=== PATIENT | female | born 1940 | race Caucasian/White ===

== ENCOUNTER 2016-04-15 16:19 | Emergency (ER) | payer OTHER ==
[2016-04-15] MEDS ORDERED: XYLOCAINE-MPF 1% INJ ONE (16:51)
[2016-04-15 17:46] LABS: MANUAL DIFF NEEDED? NO
[2016-04-15 18:02] LABS: BASO% 0.2 % (0.0-0.8); EOS# 0.07 X1000 (0.0-0.7); EOS% 0.7 % (0.0-10.0); HEMOGLOBIN 11.3 g/dL (12.0-16.0); IMM GRAN# 0.02 X1000 (0.0-0.04); IMM GRAN% 0.2 % (0.0-0.5); LYMPH# 2.12 X1000 (1.2-3.4); LYMPH% 20.1 % (20.5-51.1); MCH 31.6 PG (27-31); MCHC 32.3 g/dL (33-37); MCV 97.8 FL (81-99); MONO# 0.69 X1000 (0.11-0.59); MONO% 6.5 % (1.7-9.3); MPV 9.8 FL (7.4-10.4); NEUT% 72.3 % (42.2-75.2); PLT 291 X1000 (130-400); RBC 3.58 XMIL (4.2-5.4)
[2016-04-15 18:16] LABS: CALCIUM 9.7 mg/dL (8.8-10.2); POTASSIUM 4.2 mmol/L (3.5-5.1)
[2016-04-15] MEDS ORDERED: DIPHTHERIA/TETANUS ADULT IM ONE (18:18)
--- NOTE | 2016-04-15 18:31 | PROVIDER DOCUMENTATION ---
HPI-Head Injury - General Chief Complaint: Fall Stated Complaint: fall, head injury Time Seen by Provider: 04/15/16 16:33 Allergies/Adverse Reactions: Patient Allergies Allergy/AdvReac Type Severity Reaction Status Date / Time Sulfa (Sulfonamide Allergy Severe ITCHING Verified 04/15/16 17:46 Antibiotics) latex Allergy ITCHING Verified 04/15/16 17:46 Home Medications: Home Medication List Medication Instructions Recorded Confirmed Last Taken Type Clonazepam 0.5 mg PO HS 12/21/14 04/15/16 04/14/16 21:00 History Hydrocodone/Acetaminophen 1 each PO Q4H PRN PRN 02/11/16 04/15/16 04/13/16 20: 00 History [Hydrocodon-Acetaminophn 10-325] Sertraline [Zoloft] 50 mg PO QHS 02/11/16 04/15/16 04/14/16 21:00 History Aspirin EC 325 mg PO DAILY #0 tablet 02/14/16 04/15/16 04/15/16 08:00 Rx Carbidopa/Levodopa [Sinemet 25/100] 1 each PO QHS #0 tablet 02/14/16 04/15/16 18:00 Rx Carbidopa/Levodopa [Sinemet 25/100] 1.5 each PO DAILY@16 #0 tablet 02/14/1604/15/16 09:00 Rx Carbidopa/Levodopa [Sinemet 25/100] 1 tab PO DIRECTED 04/15/16 04/15/1604/15 12:00 History - History of Present Illness-Head Injury Nature of Presenting Problem: 75 yo with parkinsonswho stood up out of wheelchair and fell forward and hit her head on floor today approx 3 pm. No LOC. Generally not ambulatory becasue of parkinsons. No chest pain or palpitations. no other injuries Head Injury Location: reports: frontal Other injuries associated with incident:: reports: head Quality of Pain: reports: aching Severity: reports: moderate Onset/Duration: reports: unsure Method of Injury: reports: fell Loss of Consciousness: no loss of consciousness Modifying Factors: improves with: nothing Locality of Occurance: Other (shelter) Similar Symptoms Previously?: No Review of Systems - Adult - REVIEW OF SYSTEMS - ADULT Constitutional: reports: no symptoms reported Eyes: reports: no symptoms reported Ears, Nose, Mouth & Throat: reports: no symptoms reported Cardiovascular: reports: no symptoms reported Respiratory: reports: no symptoms reported Gastrointestinal: reports: no symptoms reported Genitourinary: reports: frequent UTI's Musculoskeletal: reports: other (6 months ago had L clavicle fracture) Integumentary: reports: no symptoms reported Neurological: reports: loss of balance, other (difficulty with ambulation) Past History - Adult - PAST MEDICAL HISTORY-ADULT Review of Records: reports: Old Records Reviewed, Nursing Assessment Review, Medications Reviewed Major Childhood Illnesses: reports: history unknown Cardiovascular: reports: HTN Respiratory: reports: denies history Gastrointestinal: reports: denies history, GERD Genitourinary: reports: chronic UTI's Musculoskeletal: reports: chronic pain Neurological: reports: Parkinson's Endocrine/Immune: reports: denies history Other Conditions: reports: denies history - PRIOR SURGERIES/PROCEDURES Surgical/Procedure History: reports: appendectomy, hysterectomy, back/neck - IMMUNIZATION STATUS Childhood Immunizations: See Nurse Assessment Flu Vaccine: See Nurse Assessment - FAMILY HISTORY Family History: CAD over 55 yo Physical Exam- Neurological - Physical Exam-Neuro Initial Vital Signs Reviewed: Yes General Appearance: appears well, alert, no apparent distress Eye Exam: bilateral eye: normal inspection, PERRL, EOMI HENMT: TMs normal, pharynx normal, frontal tenderness, other (frontal midline laceration 3 cm) Head Injury: active bleeding Neck: non-tender Respiratory: chest non-tender, lungs clear, normal breath sounds Cardiovascular: normal peripheral pulses, regular rate, rhythm, no edema, no gallop, no JVD, no murmur Abdominal Exam: normal bowel sounds, non tender, soft, no organomegaly Lymphatic: no adenopathy Extremity: normal range of motion, non-tender, normal inspection, 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 Exam: PERRL Motor/Sensory: no motor deficit, no sensory deficit Neurologic: grossly normal, no motor/sensory deficits Integumentary: ecchymosis (mild dorsum L hand), laceration(s) (forehead 3 cm irregular) Psych/Mental Status: normal mood/affect, normal thought content, normal thought process, oriented x 3 - [place]ow Coma Scale Best Eye Response: (4) open spontaneously Best Verbal Response: (5) oriented Best Motor Response: (6) obeys commands Progress - PLAN OF CARE/RESULTS Progress/Plan/Lab Results: Laboratory Tests 04/15/16 04/15/16 17:30 17:30 WBC 10.57 RBC 3.58 L Hgb 11.3 L Hct 35.0 L MCV 97.8 MCH 31.6 H MCHC 32.3 L RDW Std Deviation 13.4 Plt Count 291 MPV 9.8 Immature Gran % (Auto) 0.2 Neut % (Auto) 72.3 Lymph % (Auto) 20.1 L [place] % (Auto) 6.5 Eos % (Auto) 0.7 Baso % (Auto) 0.2 Immature Gran # (Auto) 0.02 Neut # (Auto) 7.65 H Lymph # (Auto) 2.12 [place] # (Auto) 0.69 H Eos # (Auto) 0.07 Baso # (Auto) 0.02 Sodium 138 Potassium 4.2 Chloride 100 Carbon Dioxide 24 L Anion Gap 14 BUN 26 H Creatinine 1.1 H Estimated GFR/1.73 m2 48 BUN/Creatinine Ratio 24 Glucose 113 H Calculated Osmolality 281 Calcium 9.7 Orders Category Date Time Status Suture Tray Set-Up DIRECTED Care 04/15/16 16:51 Active CHEST-PORTABLE [RAD] Stat Exams 04/15/16 16:49 Taken HEAD/C-SPINE W/O CONTRAST [CT] Stat Exams 04/15/16 16:48 Draft BMP [BASIC METABOLIC PANEL] [CHEM] Stat Lab 04/15/16 17:30 Completed CBC WITH ELECTRONIC DIFF [HEME] Stat Lab 04/15/16 17:30 Completed Diphtheria/Tetanus Adult Med 04/15/16 18:18 Discontinued 0.5 ml IM .ONCE ONE Lidocaine 1% Pf [Xylocaine-Mpf 1%] Med 04/15/16 16:51 Discontinued See Dose Instructions INJ NOW ONE Suture Tray (General Purpose) Stat Oth 04/15/16 16:51 Active EKG [EKG] Stat Ther 04/15/16 16:49 Ordered Vital Signs Temp Pulse Resp BP Pulse Ox 04/15/16 16:20 97.9 F 78 16 124/59 100 Sulfa (Sulfonamide Antibiotics) Allergy (Severe, Verified 04/15/16 17:46) ITCHING latex Allergy (Verified 04/15/16 17:46) ITCHING Clonazepam 0.5 mg PO HS 12/21/14 Hydrocodone/Acetaminophen [Hydrocodon-Acetaminophn 10-325] 1 each PO Q4H PRN PRN 02/11/16 Sertraline [Zoloft] 50 mg PO QHS 02/11/16 Aspirin EC 325 mg PO DAILY #0 tablet 02/14/16 Carbidopa/Levodopa [Sinemet 25/100] 1 each PO QHS #0 tablet 02/14/16 Carbidopa/Levodopa [Sinemet 25/100] 1.5 each PO DAILY@16 #0 tablet 02/14/16 Carbidopa/Levodopa [Sinemet 25/100] 1 tab PO DIRECTED 04/15/16 Laboratory 04/15/16 04/15/16 17:30 17:30 WBC 10.57 RBC 3.58 L Hgb 11.3 L Hct 35.0 L MCV 97.8 MCH 31.6 H MCHC 32.3 L RDW Std Deviation 13.4 Plt Count 291 MPV 9.8 Immature Gran % (Auto) 0.2 Neut % (Auto) 72.3 Lymph % (Auto) 20.1 L [place] % (Auto) 6.5 Eos % (Auto) 0.7 Baso % (Auto) 0.2 Immature Gran # (Auto) 0.02 Neut # (Auto) 7.65 H Lymph # (Auto) 2.12 [place] # (Auto) 0.69 H Eos # (Auto) 0.07 Baso # (Auto) 0.02 Sodium 138 Potassium 4.2 Chloride 100 Carbon Dioxide 24 L Anion Gap 14 BUN 26 H Creatinine 1.1 H Estimated GFR/1.73 m2 48 BUN/Creatinine Ratio 24 Glucose 113 H Calculated Osmolality 281 Calcium 9.7 - EKG 1 Time of EKG reading by physician:: 18:51 EKG Read and Signed by:: Keerthi Stinson EKG Interpretation (*Must complete 3 of following elements*): Abnormal Rate: 75 Rhythm: nsr [place]: left QRS: LBB - XRAY 1 XRAY Study: Chest (no fractures seen) - CT/MRI 1 CT Study: Head (no hemorrhage, some frontal sinus mucous) Procedures - LACERATION/WOUND REPAIR/FB Head Wound Location: Other: forehead midline Wound Length: 3cm Wound's Depth, Shape: superficial Wound Explored/Foreign Body: clean Irrigated with Saline?: Yes Anesthetic: 1%, Lidocaine/Xylocaine Volume of Anesthetic (ml's): 3 Wound Repaired with: Sutures Suture Size/Type: 5.0, Nylon Number of Sutures: 5 Layer Closure?: No Sterile Dressing Applied?: No Splint Applied?: No Post Procedure Neurovascular Exam: Intact Departure - Departure Time of Disposition Order: 18:27 DIAGNOSIS: Head injury, Laceration Disposition: HOME 01 Certified Medical Emergency: Emergent Condition: Stable Additional Instructions: Rest, get up with assistance only. Return to emergency department if persistent vomiting, difficulty arousing or any new neurologic symptoms. Use tylenol for discomfort. Keep wound dry over nite. Apply topical antibiotic like bacitracin daily. Suture removal 7 days ED Follow Up Instructions: You have been treated by a care provider in the Emergency Department. These instructions are being provided to you so you can have an understanding of how to care for yourself upon discharge. Upon discharge from the Emergency Department, you are responsible for making arrangements for follow-up care by a physician of your choice. Take all prescribed medications as directed. Return to the Emergency Department immediately for any new or worsening symptoms. You may call the Physician Referral phone number at [phone] to obtain a list of Physicians who are taking new patients. Referrals: Sirena Flores MD [Primary Care Provider] -
--- NOTE | 2016-04-15 19:01 | Diag Imaging Result Document ---
PROCEDURE NAME: HEAD/C-SPINE W/O CONTRAST - 04/15/2016 CT BRAIN AND CERVICAL SPINE WITHOUT CONTRAST: CT BRAIN WITHOUT: FINDINGS: No parenchymal hemorrhage. No epidural or subdural hematoma. No subarachnoid hemorrhage. No skull fracture. There are chronic microvascular ischemic changes. No hydrocephalus. No sinus opacification. No air-fluid levels. IMPRESSION: No hemorrhage. No injury. CT CERVICAL SPINE WITHOUT CONTRAST: FINDINGS: Mild scoliosis with degenerative changes in the mid and lower cervical spine. No precervical soft tissue swelling. No subluxation. No fracture. IMPRESSION: No acute bony injury. A preliminary report was given at 5:47 PM.
[2016-04-15 19:49] VITALS: BP 120/60
--- NOTE | 2016-04-16 05:39 | EKG Report ---
Test Performed on : 04/15/2016 6:51:01 PM Test Reason : fall Blood Pressure : / mmHG Vent. Rate : 075 BPM Atrial Rate : 075 BPM P-R Int : 152 ms QRS Dur : 140 ms QT Int : 410 ms P-R-T Axes : 073 -55 092 degrees QTc Int : 457 ms Normal sinus rhythm. Left axis deviation Left bundle branch block Abnormal ECG When compared with ECG of 11-FEB-2016 06:27, Left bundle branch block is now present Unconfirmed Result
--- NOTE | 2016-04-16 08:11 | Diag Imaging Result Document ---
PROCEDURE NAME: CHEST-PORTABLE - 04/15/2016 PORTABLE SITTING CHEST: COMPARISON: 02/11/2016. FINDINGS: The lungs are well expanded. The heart is not enlarged. The vessels are not distended. No contusions or pneumothoraces. The mediastinum is not widened. No pleural effusions or displaced fracture identified. IMPRESSION: Negative chest.
== END 2016-04-15 20:03 | disposition home or self-care (01) ==
LOC: EDBD → SUPCPDRO 16:19 → ED 16:19
DX: S01.81XA Laceration without foreign body of other part of head, initial encounter (principal); W19.XXXA Unspecified fall, initial encounter; R26.81 Unsteadiness on feet; I10 Essential (primary) hypertension; K21.9 Gastro-esophageal reflux disease without esophagitis; Z87.440 Personal history of urinary (tract) infections; G20 Parkinson's disease; Z82.49 Family history of ischemic heart disease and other diseases of the circulatory system; R94.31 Abnormal electrocardiogram [ECG] [EKG]; Z79.899 Other long term (current) drug therapy; Z79.82 Long term (current) use of aspirin; Z23 Encounter for immunization
CPT/HCPCS: 70450; 71010; 72125; 80048; 85025; 90714; 93005